=== PATIENT | male | born 1980 | race Caucasian/White ===

== ENCOUNTER 2019-04-16 14:53 | Inpatient (IN) | payer OTHER ==
[2019-04-16] VITALS (11 sets, daily range): BP systolic 107–132; BP diastolic 58–80; PULSE 68–100; RESP 13–25; Ht 170.2 cm; Wt 104.7 kg
[~2019-04-16] VITALS: Ht 170.2 cm; Wt 104.7 kg
[~2019-04-16 14:53] MED LIST: BUPIVACAINE 0.5%/EPI 1:200,000 50 ML (MDV) INJ ONE
[2019-04-16] MEDS ORDERED: SOD CHLORIDE 0.9% 1,000 ML IV STA (15:14)
[2019-04-16] MEDS ORDERED: KETOROLAC 30 MG INJ IV STA (15:14)
[2019-04-16] MEDS ORDERED: AMPICILLIN/SULB 3 GM/NS (PMX) 100 ML IVPB ONE (17:00)
[2019-04-16] MEDS ORDERED: ONDANSETRON 4 MG INJ IV STA (17:17)
[2019-04-16] MEDS ORDERED: morphine 4 MG/ML VIAL IV STA (17:17)
[2019-04-16] MEDS ORDERED: ACETAMINOPHEN 325 MG TAB PO PRN ×2 (17:30→23:00)
[2019-04-16] MEDS ORDERED: ONDANSETRON 4 MG INJ IV PRN ×3 (17:30→23:00)
--- NOTE | 2019-04-16 18:58 | HP ---
Date/Time of Note Date/Time of Note DATE: 04/16/19 TIME: 18:55 Assessment/Plan VTE Prophylaxis Pharmacological prophylaxis: heparin Lines/Catheters IV Catheter Type (from Nrsg): Saline Lock Assessment/Plan Hospital Course 39 yo male without significant PMH presnets with appendicitis - IV zosyn for now - NPO, IVF - Dr Enciso to consult from surgery - Pain control Result Diagram: 04/16/19 1518 04/16/19 1518 Results 24hrs Laboratory Tests Test 04/16/19 15:18 04/16/19 15:19 White Blood Count 13.0 H Red Blood Count 4.64 L Hemoglobin 13.9 L Hematocrit 40.9 L Mean Corpuscular Volume 88.1 Mean Corpuscular Hemoglobin 30.0 Mean Corpuscular Hemoglobin Concent 34.0 Red Cell Distribution Width 12.6 Platelet Count 148 Mean Platelet Volume 12.5 H Immature Granulocytes % 0.400 Neutrophils % 79.3 H Lymphocytes % 13.0 L Monocytes % 6.6 Eosinophils % 0.5 Basophils % 0.2 Nucleated Red Blood Cells % 0.0 Immature Granulocytes # 0.050 H Neutrophils # 10.3 H Lymphocytes # 1.7 Monocytes # 0.9 Eosinophils # 0.1 Basophils # 0.0 Nucleated Red Blood Cells # 0.0 Sodium Level 138 Potassium Level 4.1 Chloride Level 104 Carbon Dioxide Level 25 Anion Gap 9 Blood Urea Nitrogen 17 Creatinine 0.79 Est Glomerular Filtrat Rate mL/min > 60 Glucose Level 104 Calcium Level 9.2 Total Bilirubin 0.4 Direct Bilirubin 0.00 Indirect Bilirubin 0.4 Aspartate Amino Transf (AST/SGOT) 25 Alanine Aminotransferase (ALT/SGPT) 27 Alkaline Phosphatase 73 Total Protein 7.5 Albumin 4.3 Globulin 3.20 Albumin/Globulin Ratio 1.34 Lipase 62 Urine Color YELLOW Urine Clarity SLIGHTLY CLOUDY A Urine pH 5.0 Urine Specific [place] 1.028 Urine Ketones TRACE A Urine Nitrite NEGATIVE Urine Bilirubin NEGATIVE Urine Urobilinogen 1+ H Urine Leukocyte Esterase NEGATIVE Urine Microscopic RBC 1 Urine Microscopic WBC 1 Urine Mucus MANY A Urine Hemoglobin NEGATIVE Urine Glucose NEGATIVE Urine Total Protein NEGATIVE HPI/ROS Admit Date/Time Admit Date/Time Hx of Present Illness 39 yo male without significant PMH presents with abdominal pain Pain started over past day or so. Has become progressively worse. No fevers. No change to bowel habits. In ED had CT scan suggestive of appendicitis. Has been given analgesics and abx and feels better. He is aware of need for operation ROS Constitutional: no complaints, improved Eyes: no complaints ENT: no complaints Respiratory: no complaints Cardiovascular: no complaints Gastrointestinal: no complaints Genitourinary: no complaints Musculoskeletal: no complaints Skin: no complaints Neurologic: no complaints Endocrine: no complaints Lymphatic: no complaints Psychological: no complaints, nl mood/affect Immunologic: no complaints PMH/Family/Social Past Medical History Medical History: no pertinent history Medications Current Medications Ondansetron HCl (Zofran Inj) 4 mg BRIDGE ORDER PRN IV NAUSEA/VOMITING; Start 04/16/19 at 17:30; Stop 04/17/19 at 17:29 Acetaminophen (Tylenol Tab) 650 mg ER BRIDGE PRN PO .MILD PAIN 1-3 OR TEMP; Start 04/16/19 at 17:30; Stop 04/17/19 at 17:29 Piperacillin Sod/ Tazobactam Sod 100 ml @ 200 mls/hr Q8 IVPB ; Start 04/16/19 at 22:00 Coded Allergies: No Known Allergy (Unverified , 04/16/19) Past Surgical History Past Surgical Hx: no surgical history Family History Significant Family History: no pertinent family hx Social History Alcohol Use: none Smoking Status: Never smoker Drug Use: none Exam/Review of Systems Vital Signs Vitals Vital Signs Date Temp Pulse Resp B/P (MAP) Pulse Ox O2 O2 Flow FiO2 Time Delivery Rate 04/16/19 98.2 73 16 107/74 98 Room Air 18:44 (85) Exam Constitutional: alert, oriented, well developed Psych: no complaints, nl mood/affect Head: normocephalic, atraumatic Eyes: nl conjunctiva, EOMI, nl lids, nl sclera, PERRL ENMT: nl external ears & nose, nl lips & teeth, nl nasal mucosa & septum Neck: supple, non-tender Respiratory: clear to auscultation, normal air movement Cardiovascular: regular rate and rhythm, nl pulses Gastrointestinal: soft, nl liver, spleen, non-tender Musculoskeletal: nl extremities to inspection Extremities: normal pulses Neurological: 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
[2019-04-16] MEDS ORDERED: DEXTROSE 5%-0.45% NACL 1,000 ML IV SCH (19:01)
[2019-04-16] MEDS ORDERED: morphine 2 MG INJ IV PRN (19:30)
[2019-04-16] MEDS ORDERED: NACL 0.9% 3 ML SYG IV SCH (19:30)
--- NOTE | 2019-04-16 20:13 | ERD ---
ER Documentation Chief Complaint Chief Complaint BIBA R 881 ABDOMINAL PAIN, W./VOMITING SINCE AM, DENIES DIARRHEA HPI Used change lead. 39-year-old male presents with emergency room with approximately 12 hours of abdominal pain and describes his left lower quadrant with associated left flank pain. He notes mild nausea with vomiting that is nonbloody nonbilious. No fevers or chills. No dysuria urgency or frequency. No pain in the testicle or scrotum. Pain is noted to be 6 out of 10 currently. ROS All systems reviewed and are negative except as per history of present illness. Medications Home Meds No Active Prescriptions or Reported Meds Allergies Allergies: Coded Allergies: No Known Allergy (Unverified , 04/16/19) PMhx/Soc History of Surgery: No Hx Neurological Disorder: No Hx Respiratory Disorders: No Hx Cardiac Disorders: No Hx Psychiatric Problems: No Hx Miscellaneous Medical Probl: No Hx Alcohol Use: No Hx Substance Use: No Hx Tobacco Use: No Smoking Status: Never smoker FmHx Family History: No diabetes Physical Exam Vitals Vital Signs Date Temp Pulse Resp B/P (MAP) Pulse Ox O2 O2 Flow FiO2 Time Delivery Rate 04/16/19 98.2 86 18 122/78 99 14:57 (93) Physical Exam General: Well developed, well nourished, no acute distress Head: Normocephalic, atraumatic. Eyes: Pupils equally reactive, EOM intact ENT: Moist mucous membranes Neck: Supple, no lymphadenopathy Respiratory: Lungs clear bilaterally, no distress Cardiovascular: RRR, no murmurs, rubs, or gallops Abdominal: Soft, mild midline abdominal tenderness with slight localization of the left initially but then right on repeat exam. : Deferred MSK: No edema, no unilateral swelling, 5/5 strength Neurologic: Alert and oriented, moving all extremities, normal speech, no focal weakness, no cerebellar signs Skin: No rash Psych: Normal mood Result Diagram: 04/16/19 1518 04/16/19 1518 Results 24 hrs Laboratory Tests Test 04/16/19 15:18 04/16/19 15:19 White Blood Count 13.0 10^3/ul Red Blood Count 4.64 10^6/ul Hemoglobin 13.9 g/dl Hematocrit 40.9 % Mean Corpuscular Volume 88.1 fl Mean Corpuscular Hemoglobin 30.0 pg Mean Corpuscular Hemoglobin Concent 34.0 g/dl Red Cell Distribution Width 12.6 % Platelet Count 148 10^3/UL Mean Platelet Volume 12.5 fl Immature Granulocytes % 0.400 % Neutrophils % 79.3 % Lymphocytes % 13.0 % Monocytes % 6.6 % Eosinophils % 0.5 % Basophils % 0.2 % Nucleated Red Blood Cells % 0.0 /100WBC Immature Granulocytes # 0.050 10^3/ul Neutrophils # 10.3 10^3/ul Lymphocytes # 1.7 10^3/ul Monocytes # 0.9 10^3/ul Eosinophils # 0.1 10^3/ul Basophils # 0.0 10^3/ul Nucleated Red Blood Cells # 0.0 10^3/ul Sodium Level 138 mmol/L Potassium Level 4.1 mmol/L Chloride Level 104 mmol/L Carbon Dioxide Level 25 mmol/L Anion Gap 9 Blood Urea Nitrogen 17 mg/dl Creatinine 0.79 mg/dl Est Glomerular Filtrat Rate mL/min > 60 mL/min Glucose Level 104 mg/dl Calcium Level 9.2 mg/dl Total Bilirubin 0.4 mg/dl Direct Bilirubin 0.00 mg/dl Indirect Bilirubin 0.4 mg/dl Aspartate Amino Transf (AST/SGOT) 25 IU/L Alanine Aminotransferase (ALT/SGPT) 27 IU/L Alkaline Phosphatase 73 IU/L Total Protein 7.5 g/dl Albumin 4.3 g/dl Globulin 3.20 g/dl Albumin/Globulin Ratio 1.34 Lipase 62 U/L Urine Color YELLOW Urine Clarity SLIGHTLY CLOUDY Urine pH 5.0 Urine Specific [place] 1.028 Urine Ketones TRACE mg/dL Urine Nitrite NEGATIVE mg/dL Urine Bilirubin NEGATIVE mg/dL Urine Urobilinogen 1+ mg/dL Urine Leukocyte Esterase NEGATIVE [place]/ul Urine Microscopic RBC 1 /HPF Urine Microscopic WBC 1 /HPF Urine Mucus MANY /HPF Urine Hemoglobin NEGATIVE mg/dL Urine Glucose NEGATIVE mg/dL Urine Total Protein NEGATIVE mg/dl Current Medications Medications Dose Sig/Kai Start Time Status Last (Trade) Ordered Route PRN Stop Time Admin Dose Reason Admin Sodium 1,000 ml @ Q1H STAT 04/16/19 DC 04/16/19 Chloride 1,000 mls/hr IV 15:14 15:19 04/16/19 16:13 Ketorolac 30 mg ONCE STAT 04/16/19 DC 04/16/19 Tromethamine IV 15:14 15:19 (Toradol) 04/16/19 15:15 Ampicillin 100 ml @ ONCE ONCE 04/16/19 DC 04/16/19 Sodium/ 100 mls/hr IVPB 17:00 17:05 Sulbactam 04/16/19 17:59 Sodium Morphine 4 mg ONCE STAT 04/16/19 DC Sulfate IV 17:17 (morphine) 04/16/19 17:18 Ondansetron 4 mg ONCE STAT 04/16/19 DC HCl (Zofran IV 17:17 Inj) 04/16/19 17:18 Procedures/MDM EKG, MONITORS, & DIAGNOSTIC IMAGING: CT IMPRESSION: 1. The appendix is enlarged, measuring 14 mm in maximum diameter. There is an obstructing 9 mm appendicolith in the proximal appendiceal lumen. Additional smaller appendicoliths are seen distally. There is minimal stranding of the periappendiceal fat The findings are suspicious for acute appendicitis. There is no associated perforation or abscess. 2. The kidneys are morphologically normal. No nephrolithiasis. No hydronephrosis. No obstructive uropathy. 3. The urinary bladder is unremarkable in appearance. LAB INTERPRETATION: I reviewed the laboratory testing and it shows leukocytosis MEDICAL DECISION MAKING: Patient with nonspecific abdominal pain with slight flank component. Consider possible ureterolithiasis, diverticulitis. The patient does localize somewhat to the midline, consideration for appendicitis exist though atypical presentation certainly. CT imaging would be warranted. ER COURSE: * Laboratory testing shows leukocytosis and CT shows evidence of acute appendicitis. The patient has a repeat abdominal exam that does localize a little bit more to the right lower quadrant. * Patient is n.p.o. Broad-spectrum antibiotic provided. General surgeon notified. Patient will be admitted. CONSULTATION: General surgeon: Dr. Enciso DISPOSITION PLAN: Accepting care team and consultations: I discussed the current laboratory data, diagnostic imaging and emergency care provided. Admitting team: Dr. Gallegos Admitting team indication: Insurance directed Departure Diagnosis: Primary Impression: Appendicitis Appendicitis type: acute appendicitis Acute appendicitis type: with localized peritonitis Appendicitis gangrene presence: without gangrene Appendicitis perforation presence: without perforation Appendicitis abscess presence: without abscess Qualified Codes: K35.30 - Acute appendicitis with localized peritonitis, without perforation or gangrene Condition: Stable ABDELRAHMAN PEÑA MD April 16, 2019 20:13
--- NOTE | 2019-04-16 21:09 | CONS ---
Assessment/Plan Assessment/Plan Hospital Course (Demo Recall) In the emergency room the white count was found to be 13,000, CT scan showed appendix is enlarged, measuring 14 mm in maximum diameter. There is an obstructing 9 mm appendicolith in the proximal appendiceal lumen. Additional smaller appendicoliths are seen distally. There is minimal stranding of the periappendiceal fat The findings are suspicious for acute appendicitis. Assessment/Plan (Daily) 39-year-old male with acute appendicitis for laparoscopic possible open a ppendectomy. We discussed risks and benefits were discussed possible side effects, possible complications including but not limited to bleeding, infection, injury to other organs, anesthesia complication, patient understood risk and benefits and wished to proceed. Consultation Date/Type/Reason Admit Date/Time Date of Consultation: April 16, 2019 Type of Consult Surgical Reason for Consultation Abdominal pain Date/Time of Note DATE: 04/16/19 TIME: 21:03 Hx of Present Illness 39-year-old otherwise healthy male developed lower abdomen abdominal pain subseq uently focused in the right lower quadrant, associated with nausea. Due to severity of pain patient referred to emergency room where CT scan was performed that showed findings consistent with acute appendicitis Constitutional: no complaints, improved Eyes: no complaints ENT: no complaints Respiratory: no complaints Cardiovascular: no complaints Gastrointestinal: pain, nausea Genitourinary: no complaints Musculoskeletal: no complaints Skin: no complaints Neurologic: no complaints Endocrine: no complaints Lymphatic: no complaints Psychological: no complaints, nl mood/affect Immunologic: no complaints Past Medical History Medical History: no pertinent history Home Meds No Active Prescriptions or Reported Meds Medications Current Medications Ondansetron HCl (Zofran Inj) 4 mg BRIDGE ORDER PRN IV NAUSEA/VOMITING; Start 04/16/19 at 17:30; Stop 04/17/19 at 17:29 Acetaminophen (Tylenol Tab) 650 mg ER BRIDGE PRN PO .MILD PAIN 1-3 OR TEMP; Start 04/16/19 at 17:30; Stop 04/17/19 at 17:29 Piperacillin Sod/ Tazobactam Sod 100 ml @ 200 mls/hr Q8 IVPB ; Start 04/16/19 at 22:00 Dextrose/Sodium Chloride 1,000 ml @ 100 mls/hr Q10H IV Last administered on 04/16/19at 20:41; Admin Dose 100 MLS/HR; Start 04/16/19 at 19:01 IV Flush (NS 3 ml) 3 ml PER PROTOCOL IV ; Start 04/16/19 at 19:30 Morphine Sulfate (morphine) 2 mg Q4H PRN IV .SEVERE PAIN 7-10; Start 04/16/19 at 19:30 Allergies: Coded Allergies: No Known Allergy (Unverified , 04/16/19) Past Surgical History Past Surgical Hx: no surgical history Social History Alcohol Use: none Smoking Status: Never smoker Drug Use: none Exam/Review of Systems Exam Vitals Vital Signs Date Temp Pulse Resp B/P (MAP) Pulse Ox O2 O2 Flow FiO2 Time Delivery Rate 04/16/19 98.5 75 17 118/74 98 Room Air 19:46 (89) Constitutional: alert, oriented, well developed Psych: no complaints, nl mood/affect Head: normocephalic, atraumatic Eyes: nl conjunctiva, EOMI, nl lids, nl sclera, PERRL ENMT: nl external ears & nose, nl lips & teeth, nl nasal mucosa & septum Neck: supple, non-tender Respiratory: clear to auscultation, normal air movement Cardiovascular: regular rate and rhythm, nl pulses Gastrointestinal: soft, nl liver, spleen, other (There is a marked tenderness in the right mid abdomen and right lower quadrant with a rebound and guarding.) Musculoskeletal: nl extremities to inspection, nl gait and stance Extremities: normal pulses Neurological: 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 METHYLATE OPERATOR II-XII intact, nl mental status, nl speech, nl strength Skin: nl turgor; No rash or lesions Lymph: nl lymph nodes Results Result Diagram: 04/16/19 1518 04/16/19 1518 Results 24hrs Laboratory Tests Test 04/16/19 15:18 04/16/19 15:19 White Blood Count 13.0 H Red Blood Count 4.64 L Hemoglobin 13.9 L Hematocrit 40.9 L Mean Corpuscular Volume 88.1 Mean Corpuscular Hemoglobin 30.0 Mean Corpuscular Hemoglobin Concent 34.0 Red Cell Distribution Width 12.6 Platelet Count 148 Mean Platelet Volume 12.5 H Immature Granulocytes % 0.400 Neutrophils % 79.3 H Lymphocytes % 13.0 L Monocytes % 6.6 Eosinophils % 0.5 Basophils % 0.2 Nucleated Red Blood Cells % 0.0 Immature Granulocytes # 0.050 H Neutrophils # 10.3 H Lymphocytes # 1.7 Monocytes # 0.9 Eosinophils # 0.1 Basophils # 0.0 Nucleated Red Blood Cells # 0.0 Sodium Level 138 Potassium Level 4.1 Chloride Level 104 Carbon Dioxide Level 25 Anion Gap 9 Blood Urea Nitrogen 17 Creatinine 0.79 Est Glomerular Filtrat Rate mL/min > 60 Glucose Level 104 Calcium Level 9.2 Total Bilirubin 0.4 Direct Bilirubin 0.00 Indirect Bilirubin 0.4 Aspartate Amino Transf (AST/SGOT) 25 Alanine Aminotransferase (ALT/SGPT) 27 Alkaline Phosphatase 73 Total Protein 7.5 Albumin 4.3 Globulin 3.20 Albumin/Globulin Ratio 1.34 Lipase 62 Urine Color YELLOW Urine Clarity SLIGHTLY CLOUDY A Urine pH 5.0 Urine Specific [place] 1.028 Urine Ketones TRACE A Urine Nitrite NEGATIVE Urine Bilirubin NEGATIVE Urine Urobilinogen 1+ H Urine Leukocyte Esterase NEGATIVE Urine Microscopic RBC 1 Urine Microscopic WBC 1 Urine Mucus MANY A Urine Hemoglobin NEGATIVE Urine Glucose NEGATIVE Urine Total Protein NEGATIVE Medications Medication Current Medications Ondansetron HCl (Zofran Inj) 4 mg BRIDGE ORDER PRN IV NAUSEA/VOMITING; Start 04/16/19 at 17:30; Stop 04/17/19 at 17:29 Acetaminophen (Tylenol Tab) 650 mg ER BRIDGE PRN PO .MILD PAIN 1-3 OR TEMP; Start 04/16/19 at 17:30; Stop 04/17/19 at 17:29 Piperacillin Sod/ Tazobactam Sod 100 ml @ 200 mls/hr Q8 IVPB ; Start 04/16/19 at 22:00 Dextrose/Sodium Chloride 1,000 ml @ 100 mls/hr Q10H IV Last administered on 04/16/19at 20:41; Admin Dose 100 MLS/HR; Start 04/16/19 at 19:01 IV Flush (NS 3 ml) 3 ml PER PROTOCOL IV ; Start 04/16/19 at 19:30 Morphine Sulfate (morphine) 2 mg Q4H PRN IV .SEVERE PAIN 7-10; Start 04/16/19 at 19:30 IRIS ROMAN MD April 16, 2019 21:09
--- NOTE | 2019-04-16 21:27 | PREAC ---
Date/Time of Note Date/Time of Note DATE: 04/16/19 TIME: 21:25 Anesthesia Eval and Record Evaluation Time Pre-Procedure Interview DATE: 04/16/19 TIME: 21:25 Age 39 Sex male NPO: 8 hrs Preoperative diagnosis Acute Appendicitis Planned procedure Lap appendectomy Past Medical History Past Medical History: Includes GI: Morbid obesity Surgery & Anesthesia Issues No known issue Meds Anticoagulation: No Beta Ventura within 24 hr: No Reason Beta Ventura not given: Pt. not on B-Ventura No Active Prescriptions or Reported Meds Current Medications Ondansetron HCl (Zofran Inj) 4 mg BRIDGE ORDER PRN IV NAUSEA/VOMITING; Start 04/16/19 at 17:30; Stop 04/17/19 at 17:29 Acetaminophen (Tylenol Tab) 650 mg ER BRIDGE PRN PO .MILD PAIN 1-3 OR TEMP; Start 04/16/19 at 17:30; Stop 04/17/19 at 17:29 Piperacillin Sod/ Tazobactam Sod 100 ml @ 200 mls/hr Q8 IVPB ; Start 04/16/19 at 22:00 Dextrose/Sodium Chloride 1,000 ml @ 100 mls/hr Q10H IV Last administered on 04/16/19at 20:41; Admin Dose 100 MLS/HR; Start 04/16/19 at 19:01 IV Flush (NS 3 ml) 3 ml PER PROTOCOL IV ; Start 04/16/19 at 19:30 Morphine Sulfate (morphine) 2 mg Q4H PRN IV .SEVERE PAIN 7-10; Start 04/16/19 at 19:30 Meds reviewed: Yes Allergies Coded Allergies: No Known Allergy (Unverified , 04/16/19) Allergies Reviewed: Yes Labs/Studies Labs Reviewed: Reviewed by anesthesiologist Result Diagram: 04/16/19 1518 04/16/19 1518 Laboratory Tests 04/16/19 15:18 test: N/A Studies: ECG Pre-procedure Exam Last vitals Vital Signs Date Temp Pulse Resp B/P (MAP) Pulse Ox O2 O2 Flow FiO2 Time Delivery Rate 04/16/19 98.2 68 18 120/61 18 20:00 (80) 04/16/19 Room Air 19:46 Airway: Adequate mouth opening, Adequate thyromental dist Mallampati: Mallampati II Teeth: Normal Lung: Normal Heart: Normal ASA Physical Status ASA physical status: 2 Emergency: E Planned Anesthetic General/MAC: ETT Planned Pain Management Parenteral pain med, Local by surgeon Pre-operative Attestations Prior to commencing anesthesia and surgery, the patient was re-evaluated, there was verification of: *The patient's identity *The results of appropriate recent lab work and preoperative vital signs *The above evaluation not changing prior to induction *Anesthetic plan, risk benefits, alternative and complications discussed with patient/family; questions answered; patient/family understands, accepts and wishes to proceed. MIKE SANTAMARIA MD April 16, 2019 21:27
[2019-04-16] MEDS ORDERED: MIDAZOLAM 1 MG/ML 2 ML INJ ONE (21:31)
[2019-04-16] MEDS ORDERED: ROCURONIUM 50 MG INJ ONE (22:22)
[2019-04-16] MEDS ORDERED: GLYCOPYRROLATE 0.4 MG INJ ONE (22:22)
[2019-04-16] MEDS ORDERED: LIDOCAINE 2% (SDV) 5 ML INJ ONE (22:22)
[2019-04-16] MEDS ORDERED: PROPOFOL 20 ML ONE (22:22)
[2019-04-16] MEDS ORDERED: NEOSTIGMINE 3 MG/3 ML SYRINGE ONE (22:22)
[2019-04-16] MEDS ORDERED: ROPIVACAINE 0.5 % 30 ML VIAL ONE (22:23)
[2019-04-16] MEDS ORDERED: ONDANSETRON 4 MG INJ ONE (22:23)
--- NOTE | 2019-04-16 22:39 | OPR ---
Date/Time of Note Date/Time of Note DATE: 04/16/19 TIME: 22:37 Operative Report Procedure Date: April 16, 2019 Preoperative Diagnosis Acute appendicitis Postoperative Diagnosis Acute appendicitis Operation/Procedure Performed Laparoscopic appendectomy Surgeon see signature line Investment Officer None Second Investment Officer: SHAQUILLE JESUS Anesthesia Type: general Anesthesiologist: MIKE SANTAMARIA MD Estimated Blood Loss: minimal Transfusion none Specimen Appendix Grafts/Implants none Complications none Pt Condition Post Procedure: stable Disposition: PACU Indications 39-year-old male with acute appendicitis confirmed by CT scan and elevated white blood count Procedure Description The risks, benefits and alternatives of the procedure were discussed with the patient and informed consent was obtained. We discussed with the patient and the family possibility of the bleeding, infection, injury to other organs. Patient was brought to operating room positioned supine. General endotracheal anesthesia was induced. Abdomen was prepped and draped in the usual sterile fashion. Timeout was performed. Antibiotics were given previously. Through the small infraumbilical incision the Veress needle was placed and the abdomen was insufflated with CO2 up to 15 mmHg. Through the same incision 5 mm trocar was placed under direct control of the laparoscope. 2 additional trocars were placed in the midline, 12 mm trocar just above the pubis and 5 mm trocar midline between the pubis and the umbilicus. The appendix was visualized and was found to be acutely inflamed with phlegmon. The window was created using blunt dissection at the mesentery of the appendix next to the cecum and appendix was divided using endoscopic stapler with white load. The additional load of the same stapler was used to divide the mesentery. The hemostasis was confirmed. Local bleeding was controlled with the cautery. The abdomen was irrigated all the fluid was carefully sucked out. There is appendix was removed through the 12 mm trocar using Endocatch. The abdomen was desufflated all trocars were removed. The 12 mm trocar was closed in 2 layers using 0 Vicryl to the fascia and 4-0 Monocryl for the skin. The 5 mm trocars were closed just using 4-0 Monocryl to the skin. Patient tolerated procedure well was extubated transferred to recovery room. IRIS ROMAN MD April 16, 2019 22:39
[2019-04-16] MEDS ORDERED: KETOROLAC 30 MG INJ IV PRN (23:00)
[2019-04-16] MEDS ORDERED: DIPHENHYDRAMINE 50 MG INJ IV PRN ×2 (23:00)
[2019-04-16] MEDS ORDERED: FENTAnyl 50 MCG/ML VIAL IV PRN (23:00)
[2019-04-16] MEDS ORDERED: MEPERIDINE 25 MG INJ IV PRN (23:00)
[2019-04-16] MEDS ORDERED: METOCLOPRAMIDE 10 MG INJ IV PRN (23:00)
[2019-04-16] MEDS ORDERED: DIPHENHYDRAMINE 25 MG CAP PO PRN (23:00)
[2019-04-16] MEDS ORDERED: HYDROmorphONE 1 MG/5 ML IV SYRINGE IV PRN ×2 (23:00)
[2019-04-16] MEDS ORDERED: HYDROCODONE/APAP (5/325) TAB PO PRN (23:00)
--- NOTE | 2019-04-16 23:01 | PAC ---
Date/Time of Note Date/Time of Note DATE: 04/16/19 TIME: 23:00 Post-Anesthesia Notes Post-Anesthesia Note Last documented vital signs Vital Signs Date Temp Pulse Resp B/P (MAP) Pulse Ox O2 O2 Flow FiO2 Time Delivery Rate 04/16/19 98.2 68 18 120/61 18 20:00 (80) 04/16/19 Room Air 19:46 Activity: WNL Respiratory function: WNL Cardiovascular function: WNL Mental status: Baseline Pain reasonably controlled: Yes Hydration appropriate: Yes Nausea/Vomiting absent: Yes Comments BP:125/67, P:78, Spo2:100%, T:98,4 MIKE SANTAMARIA MD April 16, 2019 23:01
[2019-04-16] MEDS: PIPER-TAZO 3.375 GM IV (PMX) 100 ML IVPB SCH (23:14)
[2019-04-17 00:15] VITALS: BP 117/63; PULSE 76; RESP 17
[2019-04-17] MEDS: D5W-0.45 NACL + KCL 20 MEQ 1,000 ML IV SCH ×2 (00:27→10:08)
[2019-04-17] MEDS: HYDROmorphONE 0.5 MG/0.5 ML SYG IV PRN ×3 (01:27→10:15)
[2019-04-17 02:00] VITALS: BP 116/67; PULSE 71; RESP 18
[2019-04-17] MEDS: PIPER-TAZO 3.375 GM IV (PMX) 100 ML IVPB SCH ×2 (06:04→13:57)
[2019-04-17 08:00] VITALS: BP 99/56; PULSE 70; RESP 20
[2019-04-17 14:00] VITALS: BP 117/64; PULSE 76; RESP 18
--- NOTE | 2019-04-17 15:54 | PN ---
Date/Time of Note Date/Time of Note DATE: 04/17/19 TIME: 15:53 Assessment/Plan Lines/Catheters IV Catheter Type (from Nrsg): Peripheral IV Vera in Place (from Nrsg): No Assessment/Plan Assessment/Plan Status post laparoscopic appendectomy. Smooth postoperative period. The patient can be discharged. Subjective 24 Hr Interval Summary after laparoscopic appendectomy. Patient is doing well. Afebrile. Tolerates diet. And is controlled. Constitutional: improved, ambulates, flatus Feeding: advancing diet Pain Control: well controlled Exam/Review of Systems Vital Signs Vitals Vital Signs Date Temp Pulse Resp B/P (MAP) Pulse Ox O2 O2 Flow FiO2 Time Delivery Rate 04/17/19 98.6 70 20 99/56 (70) 96 08:00 04/17/19 Nasal 2.0 00:15 Cannula Intake and Output 04/16/19 04/16/19 04/17/19 1515:00 23:00 07:00 IntakeIntake Total 1200 ml 1600 ml OutputOutput Total 20 ml BalanceBalance 1180 ml 1600 ml Exam Constitutional: alert, oriented, well developed Psych: no complaints, nl mood/affect Head: normocephalic, atraumatic Eyes: nl conjunctiva, EOMI, nl lids, nl sclera ENMT: nl external ears & nose, nl lips & teeth, nl nasal mucosa & septum, mucosa pink and moist Neck: supple, non-tender Respiratory: clear to auscultation, normal air movement Cardiovascular: regular rate and rhythm, nl pulses Gastrointestinal: soft, nl liver, spleen, non-tender, other (Wounds are clean) Musculoskeletal: nl extremities to inspection, nl gait and stance Extremities: normal pulses Neurological: 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
--- NOTE | 2019-04-17 16:36 | DS ---
Date/Time of Note Date/Time of Note DATE: 04/17/19 TIME: 16:36 Discharge Summary Admission/Discharge Info Admit Date/Time April 16, 2019 at 17:19 Discharge Date/Time Discharge Diagnosis Appendicitis Patient Condition: Stable Hx of Present Illness 39 yo male without significant PMH presents with abdominal pain Pain started over past day or so. Has become progressively worse. No fevers. No change to bowel habits. In ED had CT scan suggestive of appendicitis. Has been given analgesics and abx and feels better. He is aware of need for operation Hospital Course 39 yo male without significant PMH presneted with appendicitis Was treateed [facility] IV zosyn Had appendectomy by Dr Enciso. Uncomplicated. Discharged home on POD1 Home Meds No Active Prescriptions or Reported Meds Primary Care Provider Not On Staff Doctor Pending Labs Laboratory Tests Test 04/17/19 06:52 Hemoglobin A1c 5.4 % (0-5.9) TOMASZ PEREZ MD April 17, 2019 16:36
[2019-04-19] MEDS ORDERED: IBUPROFEN 600 MG TAB PO PRN (23:00)
== END 2019-04-17 17:20 | disposition home or self-care (01) | DRG 343 ==
LOC: E/R 14:53 → PP2 17:19 → SUATTDRO 17:46
PROVIDERS: ADMIT Internal Medicine; ATTEND Internal Medicine
PROC: 0DTJ4ZZ Resection of Appendix, Percutaneous Endoscopic Approach (ICD-10-PCS; principal; 2019-04-16 19:00)
DX: K35.80 Unspecified acute appendicitis (principal); E66.01 Morbid (severe) obesity due to excess calories; Z68.36 Body mass index [BMI] 36.0-36.9, adult
CPT/HCPCS: 36415; 74176; 80053; 81001; 81003; 83036; 83690; 85025; 87086; 88304; 96374; 96375; J0295; J1170; J1885; J2175; J2250; J2270; J2405; J2543; J2710; J2795; J3010; J3480; J7030; J7042